=== PATIENT | female | born 1935 | race Asian ===

== ENCOUNTER 2020-07-15 10:29 | Inpatient (IN) | payer MEDICARE, OTHER ==
[~2020-07-15] VITALS: Ht 152.4 cm; Wt 45.4 kg
[2020-07-15] MEDS ORDERED: NALOXONE HCL 0.4 MG/ML AMPUL IV ONE (11:00)
[2020-07-15] MEDS ORDERED: NALOXONE PREFILLED SYRINGE 2 MG/2 ML SYRINGE ONE (11:04)
[2020-07-15 11:07] LABS: BASOPHILS # (AUTO) 0.1 /CMM (0.0-0.2); BASOPHILS % (AUTO) 0.9 % (0.0-2.0); EOSINOPHILS % (AUTO) 0.2 % (0.0-6.0); HEMATOCRIT 31 % (33-45); HEMOGLOBIN 10.3 g/dL (11.5-14.8); LYMPHOCYTES # (AUTO) 0.9 /CMM (0.8-4.8); LYMPHOCYTES % (AUTO) 15.3 % (20.0-44.0); MEAN CORPUSCULAR HGB CONC 34 g/dl (31.0-36.0); MEAN CORPUSCULAR VOLUME 95 fL (82-100); MONOCYTES # (AUTO) 0.4 /CMM (0.1-1.30); MONOCYTES % (AUTO) 7.3 % (2.0-12.0); NEUTROPHILS # (AUTO) 4.3 /CMM (1.8-8.9); NEUTROPHILS % (AUTO) 76.3 % (43.0-81.0); PLATELET COUNT (AUTO) 194 /CMM (150-450); RED BLOOD CELL COUNT(AUTO) 3.23 MIL/uL (4.0-5.2); WHITE BLOOD COUNT (AUTO) 5.6 K/uL (4.3-11.0)
[2020-07-15 11:11] LABS: BILIRUBIN,URINE NEGATIVE (NEGATIVE); COLOR,URINE YELLOW (YELLOW); LEUKOCYTE ESTERASE ,URINE NEGATIVE (NEGATIVE); NITRITE, URINE NEGATIVE (NEGATIVE); PH,URINE 6.5 (5.0-8.0); PROTEIN,URINE NEGATIVE (NEGATIVE); UGLUCOSE NEGATIVE (NEGATIVE); UROBILINOGEN,URINE 0.2 EU/dL (0.2)
[2020-07-15 11:38] LABS: CALCIUM, SERUM 8.8 mg/dL (8.5-10.1); CARBON DIOXIDE 29 mmol/L (21-32); CHLORIDE 102 mmol/L (98-107); CREATININE 0.7 mg/dL (0.6-1.3); GLUCOSE 134 mg/dL (74-106); POTASSIUM 4.2 mmol/L (3.5-5.1); SODIUM SERUM 137 mmol/L (136-145); UREA NITROGEN, BLOOD 12 mg/dL (7-18)
[2020-07-15 11:44] LABS: ALANINE AMINOTRANSFERASE 25 U/L (12-78); ALBUMIN 2.9 g/dL (3.4-5.0); ALCOHOL, BLOOD < 3 mg/dL (0-0); ALKALINE PHOSPHATASE 67 U/L (46-116); ASPARTATE AMINOTRANSFERASE 32 U/L (15-37); BILIRUBIN,DIRECT 0.1 mg/dL (0.0-0.2); BILIRUBIN,TOTAL 0.2 mg/dL (0.2-1.0); TOTAL PROTEIN, SERUM 6.6 g/dL (6.4-8.2)
[2020-07-15 11:48] LABS: ACETAMINOPHEN 0 ug/ml (10-30)
[2020-07-15] MEDS ORDERED: IV NS 0.9% 1,000 ML BAG IV ONE (12:00)
[2020-07-15] MEDS ORDERED: MECL-159 PO (12:19)
[2020-07-15] MEDS ORDERED: LOSA25TA27 PO (12:19)
[2020-07-15] MEDS ORDERED: DORZ10DR11 LEFTEYE (12:19)
[2020-07-15] MEDS ORDERED: RALO60TA14 PO (12:19)
[2020-07-15] MEDS ORDERED: ROSU5TAB13 PO (12:19)
[2020-07-15 12:53] LABS: THYROID STIMULATING HORMONE 0.779 uIU/mL (0.358-3.74)
[2020-07-15] MEDS ORDERED: Z GUARD REMEDY 2 OZ OINT TP PRN (15:00)
[2020-07-15] MEDS ORDERED: ONDANSETRON HCL/PF 4 MG/2 ML VIAL IVP PRN (15:00)
[2020-07-15] MEDS ORDERED: ENOXAPARIN SODIUM 40 MG/0.4 ML DISP.SYRIN SQ SCH (16:00)
[2020-07-15] MEDS ORDERED: ENOXAPARIN SODIUM 40 MG/0.4 ML DISP.SYRIN SQ ONE (16:02)
[2020-07-15] MEDS: TIMOLOL MAL/DORZOLAM HCL OPHTH 10 ML BOTTLE LEFTEYE SCH (17:03)
[2020-07-15] MEDS: IV D5/ 0.9% NACL 1,000 ML IV PRN ×2 (19:05→22:59)
[2020-07-15 22:15] VITALS: BP 149/69
[2020-07-16 00:12] VITALS: BP 140/59
[2020-07-16 04:24] VITALS: BP 144/81
[2020-07-16 06:22] LABS: BASOPHILS # (AUTO) 0.1 /CMM (0.0-0.2); BASOPHILS % (AUTO) 0.7 % (0.0-2.0); EOSINOPHILS % (AUTO) 0.4 % (0.0-6.0); HEMATOCRIT 34 % (33-45); HEMOGLOBIN 11.6 g/dL (11.5-14.8); LYMPHOCYTES # (AUTO) 1.6 /CMM (0.8-4.8); LYMPHOCYTES % (AUTO) 20.5 % (20.0-44.0); MEAN CORPUSCULAR HGB CONC 34 g/dl (31.0-36.0); MEAN CORPUSCULAR VOLUME 95 fL (82-100); MONOCYTES # (AUTO) 0.7 /CMM (0.1-1.30); MONOCYTES % (AUTO) 8.9 % (2.0-12.0); NEUTROPHILS # (AUTO) 5.5 /CMM (1.8-8.9); NEUTROPHILS % (AUTO) 69.5 % (43.0-81.0); PLATELET COUNT (AUTO) 215 /CMM (150-450); RED BLOOD CELL COUNT(AUTO) 3.59 MIL/uL (4.0-5.2); WHITE BLOOD COUNT (AUTO) 7.9 K/uL (4.3-11.0)
[2020-07-16 07:11] LABS: CALCIUM, SERUM 8.5 mg/dL (8.5-10.1); CARBON DIOXIDE 27 mmol/L (21-32); CHLORIDE 102 mmol/L (98-107); CREATININE 0.5 mg/dL (0.6-1.3); GLUCOSE 99 mg/dL (74-106); MAGNESIUM 2.3 mg/dL (1.8-2.4); PHOSPHORUS 2.8 mg/dL (2.5-4.9); POTASSIUM 3.7 mmol/L (3.5-5.1); SODIUM SERUM 137 mmol/L (136-145); UREA NITROGEN, BLOOD 10 mg/dL (7-18)
[2020-07-16 07:28] LABS: CHOLESTEROL 153 mg/dL (<200); HDL CHOLESTEROL 64 mg/dL (40-60); LDL 75 mg/dL (0-99); THYROID STIMULATING HORMONE 1.609 uIU/mL (0.358-3.74); TRIGLYCERIDES 124 mg/dL (30-150)
[2020-07-16 08:00] VITALS: BP 142/70
[2020-07-16] MEDS: TIMOLOL MAL/DORZOLAM HCL OPHTH 10 ML BOTTLE LEFTEYE SCH (08:58)
[2020-07-16] MEDS ORDERED: PANTOPRAZOLE 40 MG VIAL IV SCH (09:00)
[2020-07-16 16:00] VITALS: BP 155/78
== END 2020-07-16 18:35 | disposition home or self-care (01) | DRG 314 ==
LOC: ER 10:35 → TRANSITION 13:55 → TELE 21:41 → MED 07-16 11:31
DX: I95.9 Hypotension, unspecified (principal); G92 Toxic encephalopathy; T42.4X1A Poisoning by benzodiazepines, accidental (unintentional), initial encounter; I10 Essential (primary) hypertension; E78.5 Hyperlipidemia, unspecified; Y92.009 Unspecified place in unspecified non-institutional (private) residence as the place of occurrence of the external cause; Z20.822 Contact with and (suspected) exposure to COVID-19; Z79.899 Other long term (current) drug therapy
CPT/HCPCS: 36415; 70450-TC; 71045-TC; 80048-TC; 80061-TC; 80076-TC; 82962-TC; 83735-TC; 84100-TC; 84443-TC; 84484-TC; 85025-TC; 87081-TC; 92526; 92611-TC; 97116-TC; 97530-TC; C9113; C9803; G0378; G0480; J1650; J2310; J7030